=== PATIENT | male | born 1990 | race Caucasian/White ===

== ENCOUNTER 2023-01-01 05:44 | Emergency (ER) | payer SELFPAY ==
[~2023-01-01] VITALS: Ht 182.9 cm; Wt 74.8 kg
[2023-01-01 05:46] VITALS: BP 100/49; PULSE 114; RESP 18; TEMP 97.4; O2SAT 100
== END 2023-01-01 05:55 ==
LOC: MED 05:44
DX: Z04.1 Encounter for examination and observation following transport accident (principal); Z02.89 Encounter for other administrative examinations; V89.2XXA Person injured in unspecified motor-vehicle accident, traffic, initial encounter; Y93.89 Activity, other specified; Y92.89 Other specified places as the place of occurrence of the external cause; Y99.8 Other external cause status
CPT/HCPCS: 99283